=== PATIENT | female | born 1985 | race Caucasian/White ===

== ENCOUNTER 2018-05-13 16:26 | Emergency (ER) | payer MEDICAID ==
[2018-05-13] MEDS: IBUPROFEN 600 MG TAB PO (17:25)
[2018-05-13] MEDS: ACETAMINOPHEN 500 MG TAB PO (17:25)
[2018-05-13 18:15] LABS: MONOTEST Negative (NEG)
== END 2018-05-13 18:51 | disposition home or self-care (01) ==
LOC: FTE 16:26
DX: J02.9 Acute pharyngitis, unspecified (principal)
CPT/HCPCS: 86308; 87880; 99283